=== PATIENT | female | born 1960 | race Two or more races ===

== ENCOUNTER 2018-02-24 14:55 | Emergency (ER) | payer OTHER ==
[~2018-02-24] VITALS: Ht 152.4 cm; Wt 72.3 kg
[2018-02-24 15:00] VITALS: BP 116/73
== END 2018-02-24 18:47 | disposition home or self-care (01) ==
LOC: ED 18:45
DX: S16.1XXA Strain of muscle, fascia and tendon at neck level, initial encounter (principal); S80.12XA Contusion of left lower leg, initial encounter; S80.11XA Contusion of right lower leg, initial encounter; N28.89 Other specified disorders of kidney and ureter; G89.11 Acute pain due to trauma; R10.9 Unspecified abdominal pain; V49.3XXA Car occupant (driver) (passenger) injured in unspecified nontraffic accident, initial encounter; Y93.89 Activity, other specified; Y92.89 Other specified places as the place of occurrence of the external cause; Y99.8 Other external cause status
CPT/HCPCS: 70450; 71250; 72125; 74150; 99284